=== PATIENT | male | born 1960 | race Hispanic/Latino ===

== ENCOUNTER 2020-04-01 11:43 | Emergency (ER) | payer OTHER ==
[~2020-04-01] VITALS: Ht 175.3 cm; Wt 79.2 kg
[2020-04-01] MEDS ORDERED: DONNATAL/LIDOCAINE/MAALOX 30 ML SUSP PO STA (12:12)
[2020-04-01] MEDS ORDERED: MAGNESIUM/ALUMINUM/SIMETHICONE 30 ML UDC ONE (12:21)
[2020-04-01] MEDS ORDERED: BELLADONNA ALK/PHENOBARBITAL 5 ML UDC ONE (12:21)
[2020-04-01] MEDS ORDERED: LIDOCAINE VISC 2% SOLN 15 ML UDC ONE (12:21)
--- NOTE | 2020-04-01 12:37 | Emergency Department Note ---
History of Present Illnes History of Present Illness Chief Complaint: sent by pcp to possible get an ultrasound and or ct scan of abd/pelvis History of Present Illness This is a 59 year old male. was doing well until 6 days ago then n/v/d/luq pain then saw pcp dx/txed food poisoning. 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: No Onset (how long ago): hour(s) (2) Location: see above Quality: see above Radiation: Reports non-radiation Severity: mild Onset quality: gradual Duration (how long): day(s) (5) Timing of current episode: intermittent Progression: partially resolved Chronicity: new Context: Denies recent illness, Denies recent surgery, Denies recent immobilization, Denies recent travel, Denies trauma/injury, Denies new medications, Denies hx of DVT/PE, Denies non-compliance w/ medications Relieving factors: none Exacerbating factors: none Associated symptoms: Reports denies other symptoms Treatments prior to arrival: none Past Medical/Family History Physician Review I have reviewed the patient's past medical and family history. Any updates have been documented here. Past Medical History Recent Fever: No Clinical Suspicion of Infectio: No New/Unexplained Change in Ment: No Past Medical History: Hypertension Past Surgical History: None Social History Smoking Cessation: Never Smoker Counseling Performed: No Alcohol Use: None Any Illegal Drug Use: No Physically hurt or threatened: No Other Any Pre-Existing Lines (PICC,: No Review of Systems Review of Systems Constitutional: Reports no symptoms EENTM: Reports no symptoms Cardiovascular: Reports no symptoms Respiratory: Reports no symptoms Gastrointestinal: Reports as per HPI Genitourinary: Reports no symptoms Musculoskeletal: Reports no symptoms Integumentary: Reports no symptoms Neurological: Reports no symptoms Psychological: Reports no symptoms Endocrine: Reports no symptoms Hematological/Lymphatic: Reports no symptoms Review of other systems: All other systems negative Physical Exam Related Data Allergies: Coded Allergies: No Known Allergies (Unverified , 04/01/20) Triage Vital Signs Vital Signs Date Time Temp Pulse Resp B/P (MAP) Pulse Ox O2 Delivery O2 Flow Rate FiO2 04/01/20 11:48 97.4 71 15 118/63 97 Room Air Vital signs reviewed: Yes Physical Exam CONSTITUTIONAL Constitutional: Present well-developed, Present well-nourished HENT HENT: Present normocephalic, Present atraumatic, Present oropharynx clear/moist, Present nose normal HENT L/R: Present left ext ear normal, Present right ext ear normal EYES Eyes: Reports PERRL, Reports conjunctivae normal NECK Neck: Present ROM normal, Present supple PULMONARY Pulmonary: Present effort normal, Present breath sounds normal CARDIOVASCULAR Cardiovascular: Present regular rhythm, Present heart sounds normal, Present capillary refill normal, Present normal rate GASTROINTESTINAL Abdominal: Present soft, Present bowel sounds normal, Present tender (mild luq ) GENITOURINARY Genitourinary: Present exam deferred SKIN Skin: Present warm, Present dry MUSCULOSKELETAL Musculoskeletal: Present ROM normal NEUROLOGICAL Neurological: Present alert, Present oriented x 3, Present no gross motor or sensory deficits PSYCHOLOGICAL Psychological: Present mood/affect normal, Present judgement normal Assessment & Plan Medical Decision Making MDM see below Assessment & Plan Final Impression: (1) Acute gastritis Depart Disposition: HOME, SELF-CARE Last Vital Signs Date Time Temp Pulse Resp B/P (MAP) Pulse Ox O2 Delivery O2 Flow Rate FiO2 04/01/20 11:48 97.4 71 15 118/63 97 Room Air Medications in the ED Belladonna Alkaloids/ Phenobarbital 60 ml ONCE STAT PO Last administered on 04/01/20at 12:18; Admin Dose 60 ML; Start 04/01/20 at 12:12; Stop 04/01/20 at 12:13 Lidocaine HCl 15 ml STK-MED ONCE .ROUTE ; Start 04/01/20 at 12:21; Stop 04/01/20 at 12:18; Status DC Belladonna Alkaloids/ Phenobarbital 10 ml STK-MED ONCE .ROUTE ; Start 04/01/20 at 12:21; Stop 04/01/20 at 12:18; Status DC Magnesium Aluminum Silicate 30 ml STK-MED ONCE .ROUTE ; Start 04/01/20 at 12:21; Stop 04/01/20 at 12:18; Status DC ALISON YUN Apr 01, 2020 12:37
--- OUTSIDE RECORDS SUMMARY | 2020-04-01 12:44 | XMS REPORT | Continuity of Care Document ---
Author Author [facility] t Organization [facility] Address [address] [place] [address] Phone Unavailable Care Team Providers Care Grounds Maintenance Manager Name Role Phone Eva Ferrari MD, Ericka Plaza Attnava [phone] ANANDASABAPATHY, JOSEFA Attphys Unavailable ANANDASABAPATHY, JOSEFA Admphys Unavailable Problems This patient has no known problems. Allergies, Adverse Reactions, Alerts This patient has no known allergies or adverse reactions. Social History Social Habit Start Date Stop Date Quantity Comments Source History SDOH Alcohol Std Drinks [facility] History SDOH Alcohol Binge [facility] Sex Assigned At [facility] History SDOH Alcohol Frequency 2018-12-24 00:00:00 2018-12-24 00:00:0 0 1 [facility] Smoking Status Start Date Stop Date Source Never smoker [facility] Medications Ordered Medication Name Filled Medication Name Start Date Stop Da te Current Medication? Ordering Clinician Indication Dosage Frequency Signature (SIG) Comments Components Source olmesartan (BENICAR) 20 MG tablet 2018-12-24 14:15:25 Yes 10mg QD Take 10 mg by mouth daily. [facility] Procedures This patient has no known procedures. Encounters Start Date/Time End Date/Time Encounter Type Admission Type Attendi [facility] Care Department Encounter ID Source 2019-09-26 10:53:13 2019-09-26 10:56:28 Office Visit Mela Barnes [facility] [id number] Results Test Description Test Time Test Comments Results Result Comments Source TISSUE EXAM 2019-01-11 12:23:00 Surgical Pat hology Report Case: [id number] Authorizing Provider: Josefa Fiore, Collected: 01/10/2019 1133 Ordering Location: [facility] Received: 01/10/2019 1537 SERVICES Pathologist: Lashae Simon MD Specimen: Polyp, Colon - Transverse, bx TRANSVERSE COLON POLYP, BIOPSY: - TUBULAR ADENOMA Signing Pathologist Direct Phone Line: [phone] signed by Lashae Simno MD on 01/11/2019 at 12:23 [id number] is colonoscopy, biopsy. Preoperative and postoperative diagnoses are screening for colon cancer.Transverse colon biopsy The specimen is received in one part labeled with the patient's name, Zulay Andrade_ and accession number, [id number], which corresponds to the accompanying requisition.The specimen is received in a biohazard bag in a specimen container and in formalin labeled "transverse colon" and consists a single irregular fragment of soto tissue measuring 0.7 x 0.4 x 0.1 cm, which is submitted in toto in one cassette. AG/ew Performed
--- OUTSIDE RECORDS SUMMARY | 2020-04-01 12:44 | XMS REPORT | Clinical Summary ---
Author Author [facility] Address Unknown Phone Unavailable Care Team Providers Care Land Department Head Name Role Phone PCP Unavailable Allergies No Known Allergies Medications End Date Status Medication Sig Dispensed Refills Start Date Active olmesartan (BENICAR) 20 Take 10 mg by 0 MG tablet mouth daily. Active Problems Not on file Social History Date Tobacco Use Types Packs/Day Years Used Never Smoker Smokeless Tobacco: Never Used Alcohol Use Drinks/Week oz/Week Comments No Alcohol Habits Answer Date Recorded How often do you have a drink containing alcohol? Never 12/24/2018 How many drinks containing alcohol do you have on No t asked a typical day when you are drinking? How often do you have six or more drinks on one Not asked occasion? Sex Assigned at Date Recorded Not on file Industry Job Start Date Occupation Not on file Not on file Not on file Travel End Travel History Travel Start No recent travel history available. Last Filed Vital Signs Not on file Plan of Treatment Not on file Results Not on fileafter 04/01/2019 Insurance Payer Benefit Subscriber ID Type Phone Address Plan / Group [employer] xxxxxxxxxxx [employer] [phone] [id number] [facility] (Home) [place] [address] [facility]
[2020-04-01 12:50] VITALS: BP 93/58
== END 2020-04-01 12:50 | disposition home or self-care (01) ==
LOC: FSED 11:43
DX: R10.12 Left upper quadrant pain (principal); K29.00 Acute gastritis without bleeding; I10 Essential (primary) hypertension
CPT/HCPCS: 99283